=== PATIENT | female | born 1995 | race Caucasian/White ===

== ENCOUNTER 2024-03-05 13:16 | Inpatient (IN) | payer OTHER ==
[~2024-03-05] VITALS: Ht 165.1 cm; Wt 108.6 kg
[~2024-03-05 13:16] MED LIST: MAGNESIUM OXID500 MG PO; PRENATAL TABLET PO; PROTONIX20 MG PO
--- NOTE | 2024-03-08 19:00 | NUR ---
1899- PT PRESENTS TO LDR FOR SCHEDULED CYTOTEC INDUCTION. AMBULATORY TO ROOM LR5, CHANGED INTO GOWN. 1908- EFM X2 APPLIED. PT DENIES CONSISTENT CONTRACTIONS, LEAKING AMNIOTIC FLUID, OR VAGINAL BLEEDING. PT STATES SHE IS FEELING BABY MOVE NORMALLY. PLAN OF CARE FOR INDUCTION DISCUSSED AND QUESTIONS ANSWERED. PT AND VERBALIZE UNDERSTANDING AND AGREEMENT WITH PLAN. 1924- IV START TO RIGHT HAND X2 ATTEMPTS. BLOOD DRAWN FOR LABS. LR BOLUS INFUSING PRIOR TO START OF INDUCTION. 1929- NURSING ADMISSION HISTORY AND ASSESSMENT COMPLETED. 1949- CONSENTS SIGNED. 1999- PT DECLINES GOING TO BATHROOM PRIOR TO SVE AND CYTOTEC PLACEMENT. SVE BY THIS NURSE /, UNABLE TO DETERMINE PRESENTING PART BASED ON EXAM. CYTOTEC PLACED WITHOUT DIFFICULTY. PT IN LEFT TILT AND ORAL HYDRATION PROVIDED. 2018- DR ADAMS CALLED CHARTED.
[2024-03-08 19:30] VITALS: BP 126/59; PULSE 97; TEMP 98.2
[2024-03-08] MEDS ORDERED: miSOPROStol 25 MCG (1/4th of 100 MCG) TAB VG ONE (19:30)
[2024-03-08] MEDS ORDERED: LR & Oxytocin 500 ML IV SCH (19:30)
[2024-03-08] MEDS ORDERED: Terbutaline 1 MG/ML 1 ML AMP SQ PRN (19:30)
[2024-03-08] MEDS ORDERED: LR 1,000 ML IV SCH (19:30)
[2024-03-08] MEDS ORDERED: miSOPROStol 25 MCG (1/4th of 100 MCG) TAB VG SCH (19:30)
[2024-03-08 20:00] VITALS: BP 132/77; PULSE 82
[2024-03-08 20:30] VITALS: BP 172/80; PULSE 88
--- NOTE | 2024-03-08 20:45 | NUR ---
2044- NURSE TO BEDSIDE. PT DENIES NEEDS AT THIS TIME. STATES SHE MIGHT BE FEELING SOME MILD CRAMPING, BUT IT IS NOT PAINFUL. PLAN OF CARE DISCUSSED. 2204- PT STATES SHE IS FEELING SOME MILD CRAMPING. STATES IT IS NOT PAINFUL. PT DECLINES TO HAVE A SNACK AT THIS TIME. PT ALSO DECLINES VISARIL TO HELP WITH SLEEP AT THIS TIME. PT ASSISTED UP TO BATHROOM. 2207- PT BACK TO BED. SHE POSITIONS FOR COMFORT AND MONITORS ADJUSTED.
[2024-03-08 20:47] LABS: BASO % 0.2 % (0.0-2.0); EOS % 0.3 % (0.0-4.0); GRAN # 7.2 K/mm3 (1.4-6.5); GRAN % 72.6 % (42.2-75.2); LYMPH # 2.1 K/mm3 (1.2-3.4); LYMPH % 20.8 % (20.0-51.0); MEAN CELL VOLUME 80 fl (80.0-100.0); MEAN CORPUSCULAR HEMOGLOBIN 26 pg (27-31); MEAN CORPUSCULAR HGB CONC 32 g/dl (33.0-37.0); MEAN PLATELET VOLUME 11.2 fl (7.4-10.4); MONO # 0.5 K/mm3 (0.1-0.6); MONO % 5.5 % (1.7-9.3); PLATELET COUNT 217 K/mm3 (130-400); RED BLOOD COUNT 3.87 M/mm3 (4.10-5.30); REDCELL DISTRIBUTION WIDTH-CV 14.9 % (11.5-14.5)
[2024-03-08 20:50] LABS: HEMATOCRIT 30.9 % (37.0-47.0)
[2024-03-08 21:00] VITALS: BP 134/79; PULSE 87
[2024-03-08 21:07] LABS: ALBUMIN 2.7 g/dL (3.5-5.0); BILIRUBIN,TOTAL 0.2 mg/dL (0.2-1.2); CALCIUM 8.7 mg/dL (8.4-10.2); CREATININE, serum 0.69 mg/dL (0.57-1.11); POTASSIUM 3.8 mEq/L (3.5-4.5); TOTAL PROTEIN 6.2 g/dl (6.2-8.1)
[2024-03-08 21:30] VITALS: BP 138/84; PULSE 80
[2024-03-08 22:00] VITALS: BP 137/85; PULSE 82
--- NOTE | 2024-03-08 23:55 | NUR ---
2355- PT UP TO BATHROOM BEFORE CYTOTEC PLACEMENT. STATES SHE HAS NOTICED A "FEW" CONTRACTIONS, BUT THEY WEREN'T PAINFUL. PLAN OF CARE DISCUSSED. 0000- PT BACK TO BED. SVE BY THIS NURSE WITH CYTOTEC PLACEMENT -/-3. CYTOTEC PLACED WITHOUT DIFFICULTY. PT POSITIONED IN LEFT TILT AND MONITORS ADJUSTED. PT DENIES FURTHER NEEDS AT THIS TIME.
[2024-03-09] VITALS (79 sets, daily range): BP systolic 110–153; BP diastolic 59–104; PULSE 73–108; TEMP 98–98.2
--- NOTE | 2024-03-09 02:10 | NUR ---
0210- PT ASSISTED UP TO BATHROOM. STATES SHE IS FEELING SOME MILD CONTRACTIONS, MOSTLY IN HER BACK. REASSURED THAT IS NORMAL.
--- NOTE | 2024-03-09 02:50 | NUR ---
0250- PT'S CALLS OUT STATING THEY THINK PT'S WATER HAS BROKEN. NURSE TO BEDSIDE. MODERATE AMOUNT OF CLEAR FLUID NOTED ON CHUX PAD. AMNITRACE POSITIVE FOR RUPTURE OF MEMBRANES. PLAN OF CARE DISCUSSED WITH PT REGARDING PITOCIN AND LABOR PROGRESSION. QUESTIONS ANSWERED. PT AGREEABLE WITH SEEING HOW HER CONTRACTIONS PROGRESS WITH HER WATER BROKEN. 0255- PT UP TO BATHROOM. CLEAN LINENS PROVIDED. 0300- PT BACK TO BED. 0340- PT CALLS OUT WITH INCREASING DISCOMFORT, SHE WOULD LIKE TO GET OUT OF BED FOR A WHILE AND WALK IN ROOM. PAIN MANAGEMENT OPTIONS DISCUSSED. AMBULATION AND BIRTHING BALL OFFERED. PT WISHES TO GET UP AND AMBULATE IN HER ROOM FOR A WHILE TO STRETCH. 0345- PT OFF MONITORS TO AMBULATE IN ROOM.
--- NOTE | 2024-03-09 04:15 | NUR ---
0415- PT BACK TO BED AND ON MONITORS. STATES SHE FEELS BETTER WHEN SHE IS UP WALKING. 0435- PT UP TO WALK IN ROOM AND REQUESTS BIRTHING BALL. BIRTHING BALL AND INSTRUCTIONS FOR USE PROVIDED.
--- NOTE | 2024-03-09 05:10 | NUR ---
0510- PT BACK TO BED AND ON MONITORS. PT STATES SHE IS MORE UNCOMFORTABLE WITH HER CONTRACTIONS NOW. WILL CONSIDER PAIN MANAGEMENT OPTIONS. 0530- PT IS READY FOR AN EPIDURAL FOR PAIN RELIEF. QUESTIONS ANSWERED AND PLAN OF CARE DISCUSSED. 0535- SVE BY THIS NURSE WITH CLEAR FLUID POOLING. NIKUNJ ABREU CALLED FOR EPIDURAL PLACEMENT. SHE STATES SINCE IT IS SO CLOSE TO SHIFT CHANGE, CALL ISMA INSTEAD. ISMA ABREU CALLED FOR EPIDURAL PLACEMENT AND HE IS ON HIS WAY. 0600- PT IS SITTING UP IN BED, BREATHING THROUGH HER CONTRACTIONS. MONITOR TRACES MATERNAL WHILE SHE IS SITTING UP IN BED. BETWEEN CONTRACTIONS WHEN PT IS RELAXED, HEART RATE TRACES. 0607- PT UP TO BATHROOM PRIOR TO EPIDURAL PLACEMENT. 0610- PT BACK TO BED, POSITIONED SITTING UP ON EDGE OF BED FOR EPIDURAL PROCEDURE. ISMA ABREU AT BEDSIDE FOR EPIDURAL PLACEMENT. ISMA DISCUSSES RISKS AND BENEFITS AND OBTAINS INFORMED CONSENT.
[2024-03-09] MEDS ORDERED: ROPivacaine PF 0.2% 200 ML IV ONE (06:07)
--- NOTE | 2024-03-09 06:33 | NUR ---
0615- THIS RN TO BEDSIDE FOR BEDSIDE REPORT, REPORT RECIEVED FROM JUVENAL. PATIENT IS SITTING UP FOR EPIDURAL PLACEMENT, ISMA EXPLAINING PROCEDURE TO PATIENT. THIS RN ASSUMES CARE AT THIS TIME. EFM ADJUSTED, DIFFICULTY TRACING FHR DUE TO MATERNAL POSITION. 0626- TEST DOSE ADMINISTERED BY BRADY ASHBY. 0633- PATIENT REPOSITIONED TO WEDGED RIGHT, EFM ADJUSTED, FHR TRACING WELL. THIS RN REMAINS AT BEDSIDE TO ASSESS VITAL SIGNS.
[2024-03-09] MEDS ORDERED: ePHEDrine 50 MG/10 ML VIAL IV PRN (07:00)
[2024-03-09] MEDS ORDERED: diphenhydrAMINE 50 MG/ML 1 ML VIAL IV PRN (07:00)
[2024-03-09] MEDS ORDERED: diphenhydrAMINE 25 MG CAP PO PRN (07:00)
[2024-03-09] MEDS ORDERED: Naloxone 0.4 MG/ML VIAL IV PRN ×2 (07:00→22:00)
[2024-03-09] MEDS ORDERED: Ondansetron 4 MG/2 ML VIAL IV PRN ×2 (07:00→22:00)
--- NOTE | 2024-03-09 07:14 | NUR ---
THIS RN TO BEDSIDE TO ADJUST TOCO, TOCO NOT TRACING WELL DUE TO MATERNAL POSITON. TOCO ADJUSTED.
[2024-03-09 07:23] LABS: COLLECTION METHOD CLEAN CATCH
[2024-03-09 07:43] LABS: PH 8.5 (5.0-8.5); URINE APPEARANCE CLEAR (CLEAR/HAZY); URINE COLOR YELLOW (YELLOW); URINE GLUCOSE NEGATIVE (NEGATIVE); URINE KETONE 1+ (NEGATIVE); URINE PROTEIN(semi-quant) NEGATIVE (NEGATIVE); URINE UROBILINOGEN 0.2 E.U/dL (0.2-1.0)
[2024-03-09 07:44] LABS: URINE BLOOD TRACE-INTACT (NEGATIVE); URINE NITRATE NEGATIVE (NEGATIVE)
[2024-03-09 08:10] LABS: AMORPHOUS CRYSTAL PRESENT (NOT PRESENT); URINE BACTERIA RARE /hpf (NONE SEEN); URINE RBC 0-2 /hpf (0-2)
--- NOTE | 2024-03-09 09:07 | NUR ---
THIS RN TO BEDSIDE TO REPOSITION PATIENT DUE TO LATE DECELERATION, LR BOLUS HAS BEEN RUNNING FOR 20MINUTES. PATIENT REPOSITONED TO LEFT LATERAL, PITOCIN HALFED TO 4.
--- NOTE | 2024-03-09 09:55 | NUR ---
AT BEDSIDE TO ASSESS PATIENT PROGRESS, SVE /-1.
--- NOTE | 2024-03-09 10:30 | NUR ---
PATIENT REPOSTIONED TO LEFT LATERAL "FLYING COWGIRL" WITH PEANUT BALL BETWEEN PATIENT ANKLES. PATIENT TOLERATES POSITION WELL, TOCO ADJUSTED WITH POSITION CHANGE.
--- NOTE | 2024-03-09 11:05 | NUR ---
TO BEDSIDE TO ASSESS PATIENT PROGRES. SVE /-1. PATIETN REPOSITIONED TO RIGHT LATERAL WITH LEFT LEG IN STIRUP
--- NOTE | 2024-03-09 11:45 | NUR ---
PATIENT REPOSITIONED TO RIGHT LATERAL "FLYING COWGIRL" WITH PEANUT BALL BETWEEN ANKLES.
--- NOTE | 2024-03-09 13:25 | NUR ---
1300- THIS RN TO BEDSIDE TO REPOSITION PATIENT. PATIENT REPORTS RECTAL PRESSURE AT THIS TIME WITH CONTRACTIONS. 1305- PATIENT ASSISTED TO RIGHT LATERAL FOR SIDE LYING HIP RELEASE. 1315- PATIENT ASSISTED TO LEFT LATERAL FOR SIDE LYING HIP RELEASE. 1325- PATIENT ASSISTED TO LEFT LATERAL "FLYING COWGIRL" WITH PEANUT BALL BETWEEN HER ANKLES. FHR DECELERATION INTO THE 90s, FHR RETURNS TO BASELINE SPONTANEOUSLY.
--- NOTE | 2024-03-09 13:40 | NUR ---
THIS RN TO BEDSIDE TO ADJUST TOCO AND EFM DUE TO NOT TRACING WELL. EFM ADJUSTED AND FHR TRACING WELL, TOCO ZEROED.
--- NOTE | 2024-03-09 14:00 | NUR ---
PATIENT REPOSITIONED TO RIGHT LATERAL "FLYING COWGIRL" WITH PEANUT BALL BETWEEN ANKLES.
--- NOTE | 2024-03-09 14:40 | NUR ---
PATIENT REPOSTIONED TO RIGHT LATERAL, PATIETN DECLINES CERVIX EXAM AT THIS TIME.
--- NOTE | 2024-03-09 16:32 | NUR ---
THIS RN TO BEDSIDE IN REPSONSE TO PATIENT REPORTING INCREASED RECTAL PRESSURE. SVE 9/100/0, PATIENT REPOSITONED TO WEDGED LEFT WITH PEANUT BALL BETWEEN HER KNEES.
--- NOTE | 2024-03-09 17:10 | NUR ---
PATIENT REPOSITIONED TO RIGHT LATERAL "FLYING COWGIRL" WITH PEANUT BALL BETWEEN ANKLES. TOCO ADJSUTED.
--- NOTE | 2024-03-09 17:40 | NUR ---
PATIENT REPOSITIONED TO LEFT LATERAL "FLYING COWGIRL" WITH PEANUT BALL BETWEEN HER ANKLES. TOCO ADJUSTED.
--- NOTE | 2024-03-09 18:50 | NUR ---
HANDS AND KNEES
--- NOTE | 2024-03-09 19:15 | NUR ---
DIFFICULT TRACING EFM WHILE PT IN HANDS AND KNEES. MONITOR ADJUSTED.
--- NOTE | 2024-03-09 19:30 | NUR ---
PT PLACED IN EXAGGERATED RUNNERS POSITION ON THE RIGHT SIDE. DIFFICULTY WITH EFM. NURSE IN ROOM ADJUSTING MONITORS.
--- NOTE | 2024-03-09 20:00 | NUR ---
1950-PT ASSISTED TO MOVE SUPINE. MONITORS ADJUSTED. 2000- NO CHANGE TO CERVIX, NOTIFIED.
--- NOTE | 2024-03-09 20:15 | NUR ---
DR ADAMS AND BEDSIDE.
[2024-03-09] MEDS ORDERED: Chloroprocaine PF 3% (30 MG/ML) 20 ML VIAL ONE (20:30)
--- NOTE | 2024-03-09 20:30 | NUR ---
ABDOMINAL WASH PERFORMED. PT ALREADY SHAVED. 2039- WARD CATH FLUSHED DUE TO LOW URINE OUTPUT LAST 2 HOURS. FLUSHED EASILY. LR BOLUS BEGUN. ENGINEERING TECHNICIAN AT BEDSIDE. 2049- EFM OFF AND PT TAKEN TO OR PER BED. ENGINEERING TECHNICIAN TO GIVE PREOP ANTIBIOTICS ORDERED.
[2024-03-09] MEDS ORDERED: ceFAZolin 2 G in Water For Injection,Sterile 20 ML IV ONE (20:45)
[2024-03-09] MEDS ORDERED: Azithromycin 500 MG in NS 250 ML IV ONE (20:45)
[2024-03-09] MEDS ORDERED: LR 1,000 ML IV SCH (20:45)
[2024-03-09] MEDS ORDERED: traZODone 50 MG TAB PO PRN (21:00)
[2024-03-09] MEDS ORDERED: Oxytocin 10 UNITS/ML VIAL ONE (21:06)
[2024-03-09] MEDS ORDERED: fentaNYL 50 MCG/ML 2 ML VIAL ONE ×2 (21:07→21:10)
[2024-03-09] MEDS ORDERED: Ketorolac 30 MG/ML VIAL ONE (21:09)
[2024-03-09] MEDS ORDERED: Ondansetron 4 MG/2 ML VIAL ONE (21:09)
[2024-03-09] MEDS ORDERED: EPINEPHrine 1 MG/1 ML Ampule ONE (21:30)
[2024-03-09] MEDS ORDERED: dexAMETHasone 10 MG/ML VIAL ONE (21:30)
[2024-03-09] MEDS ORDERED: oxyCODONE 5 MG TAB PO PRN (22:00)
[2024-03-09] MEDS ORDERED: Loratadine 10 MG TAB PO PRN (22:00)
[2024-03-09] MEDS ORDERED: Acetaminophen 500 MG TAB PO SCH (22:00)
[2024-03-09] MEDS ORDERED: LR 1,000 ML IV PRN (22:00)
[2024-03-09] MEDS ORDERED: Magnes Hydrox (MOM) 80 MG/ML 30 ML CUP PO PRN (22:00)
[2024-03-09] MEDS ORDERED: Measles/Mumps/Rubella Virus Vaccine Live w Diluent 0.5 ML VIAL SQ SCH (22:00)
--- NOTE | 2024-03-09 22:00 | NUR ---
TO PACU. ALERT AND ORIENTED. STABLE AND WITHOUT COMPLAINT AT THIS TIME.
--- NOTE | 2024-03-09 22:35 | NUR ---
PT REMAINS STABLE. PT MOVED FROM PACU TO ROOM WITH SPOUSE AND .
[2024-03-10] VITALS (8 sets, daily range): BP systolic 104–144; BP diastolic 56–87; PULSE 79–98; TEMP 97.8–98.6
[2024-03-10] MEDS ORDERED: Ibuprofen 800 MG TAB PO SCH (03:55)
[2024-03-10] MEDS ORDERED: Sennosides/Docusate 8.6-50 MG TAB PO SCH (08:00)
[2024-03-10] MEDS ORDERED: IBU800 M1 PO (10:45)
[2024-03-10] MEDS ORDERED: ROXICODONE 55 MG/TAB PO (10:45)
[2024-03-10] MEDS ORDERED: TYLENOL 500MG500 MG PO (10:45)
[2024-03-11 08:00] VITALS: BP 120/62; PULSE 74; TEMP 98
== END 2024-03-11 12:15 | disposition home or self-care (01) | DRG 788 ==
LOC: OB 03-08 13:14 → LDR 03-08 18:56 → OB 03-09 23:40
PROVIDERS: ADMIT Student in an Organized Health Care Education/Training Program
PROC: 10D00Z1 Extraction of Products of Conception, Low, Open Approach (ICD-10-PCS; principal; 2024-03-09)
PROC: 3E0P7VZ Introduction of Hormone into Female Reproductive, Via Natural or Artificial Opening (ICD-10-PCS; 2024-03-09)
PROC: 3E033VJ Introduction of Other Hormone into Peripheral Vein, Percutaneous Approach (ICD-10-PCS; 2024-03-09)
DX: O48.0 Post-term pregnancy (principal); Z3A.40 40 weeks gestation of pregnancy; Z37.0 Single live birth; O36.63X0 Maternal care for excessive fetal growth, third trimester, not applicable or unspecified; O99.62 Diseases of the digestive system complicating childbirth; O69.81X0 Labor and delivery complicated by cord around neck, without compression, not applicable or unspecified; K21.9 Gastro-esophageal reflux disease without esophagitis; O76 Abnormality in fetal heart rate and rhythm complicating labor and delivery; Z88.5 Allergy status to narcotic agent
CPT/HCPCS: J0171; J0665; J1100; J1885; J2401; J2405; J2590; J2795; J3010; J7120